=== PATIENT | female | born 1940 | race Caucasian/White ===

== ENCOUNTER 2025-02-11 15:39 | Outpatient (CLI) | payer MEDICARE | END 2025-02-11 15:40 | disposition home or self-care (01) | LOC: CSHRAD 15:39 | PROVIDERS: ATTEND Internal Medicine | DX: C91.10 Chronic lymphocytic leukemia of B-cell type not having achieved remission (principal); R91.8 Other nonspecific abnormal finding of lung field; J94.8 Other specified pleural conditions | CPT/HCPCS: 71046 ==